=== PATIENT | male | born 1945 | race Caucasian/White ===

== ENCOUNTER 2020-05-31 13:49 | Emergency (ER) | payer OTHER ==
[2020-05-31 15:32] LABS: ALT/SGPT 30 U/L (12-78); AST/SGOT 18 U/L (15-37); Albumin 3.4 g/dL (3.4-5.0); Alkaline Phosphatase 65 U/L (45-117); BUN Blood Urea Nitrogen 22 mg/dL (7-18); Bicarbonate 26 mmol/L (21-32); Bilirubin Direct < 0.1 mg/dL (0-0.2); Bilirubin Total 0.3 mg/dL (0.2-1.0); Glucose Level 99 mg/dL (74-106); Potassium 4.1 mmol/L (3.5-5.1); Protein, Total 7.4 g/dL (6.4-8.2); Sodium Level 143 mmol/L (136-145)
[2020-05-31 15:37] LABS: Absolute Lymphocytes (CBC) 1.8 K/uL (0.7-4.9); Basophils % 1.2 % (0-1.3); Hematocrit 41.3 % (39.6-49.0); Lymphocytes % 37.7 % (15.3-44.8); MPV 8.6 fL (7.6-11.3); RBC Red Blood Cell Count 4.65 M/uL (4.33-5.43)
[2020-05-31 15:38] LABS: Protime INR 1.04
[2020-05-31 16:20] LABS: Urine Appearance CLOUDY; Urine Bilirubin NEGATIVE (NEG); Urine Blood 3+ (NEG); Urine Color RED; Urine Glucose NEGATIVE (NEG); Urine Protein 2+ (NEG); Urine Urobilinogen 0.2 mg/dL (0.2-1.0)
[2020-05-31 16:40] LABS: Urine Bacteria <20 /HPF (NONE SEEN); Urine Culture Reflex Order REFLEXED; Urine Mucus 1+ /HPF (NONE SEEN); Urine RBC >50 /HPF (NONE SEEN)
--- NOTE | 2020-05-31 16:44 | RAD REPORT ---
EXAM DESCRIPTION: CT - Abdomen Pelvis W Contrast - 05/31/2020 4:08 pm CLINICAL HISTORY: Abdominal pain/hematuria COMPARISON: none. TECHNIQUE: Computed axial tomography of the abdomen pelvis was obtained. 100 cc Isovue-300 was admin istered intravenously. Oral contrast was not requested which limits evaluation of bowel. All CT scans are performed using dose optimization technique as appropriate and may include automated exposure control or mA/KV adjustment according to patient size. FINDINGS: The liver, spleen, pancreas, adrenal and right kidney appear unremarkable. 3 millimeter no nobstructing renal calculus There is no evidence of diverticulitis. The prostate gland is markedly enlarged. It contains a 12 millimeter low-density area. Blood is present within bladder. Small to moderate right inguinal hernia contains fat. The appendix is normal caliber containing a tin y calcification 8 millimeter apparent soft tissue structure distal stomach IMPRESSION: 3 millimeter nonobstructing left renal calculus Blood within bladder. Direct visualization recommended Marked prostatic hypertrophy. 12 millimeter low-density area within the prostate may be a small absce ss 8 millimeter apparent soft tissue structure distal stomach may represent a mass or wall thickening
[2020-05-31] MEDS ORDERED: CEFTRIAXONE/SWI 1gm 1 GM/10 ML SYR ONE (17:19)
[2020-05-31] MEDS ORDERED: LIDOCAINE VISCOUS 2% SOLN 15 ML UDC ONE (18:34)
--- NOTE | 2020-05-31 18:37 | ER ---
Nurse's Notes [facility] Name: Ced Lincoln Age: 74 yrs Sex: Male : 1945 Arrival Date: 05/31/2020 Time: 13:51 Bed 13 Private MD: Diagnosis: Hematuria;Acute prostatitis Presentation: 05/31 14:22 Chief complaint: Patient states: blood in urine X 2 days, has appt with urologist on iw , urine frequency, no pain, passed clots today. Coronavirus screen: At this time, the client does not indicate any symptoms associated with coronavirus-19. Ebola Screen: Patient negative for fever greater than or equal to 101.5 degrees Fahrenheit, and additional compatible Ebola Virus Disease symptoms Patient denies exposure to infectious person. Patient denies travel to an Ebola-affected area in the 21 days before illness onset. No symptoms or risks identified at this time. Initial Sepsis Screen: Does the patient meet any 2 criteria? No. Patient's initial sepsis screen is negative. Does the patient have a suspected source of infection? No. Patient's initial sepsis screen is negative. Risk Assessment: Do you want to hurt yourself or someone else? Patient reports no desire to harm self or others. 14:22 Method Of Arrival: Ambulatory iw 14:22 Acuity: RAMIRO 3 iw Historical: - Allergies: 14:25 No Known Allergies; iw - Home Meds: 14:25 tamsulosin 0.4 mg oral cp24 1 cap once daily [Active]; iw - PMHx: 14:25 Hypertension; iw - PSHx: 14:25 Tonsillectomy; Hernia repair; iw - Immunization history:: Adult Immunizations not up to date. - Social history:: Smoking status: Patient denies any tobacco usage or history of. Screenin:55 Abuse screen: Denies threats or abuse. Denies injuries from another. Nutritional jl7 screening: No deficits noted. Tuberculosis screening: No symptoms or risk factors identified. Fall Risk IV access (20 points). Total Saeed Fall Scale indicates No Risk (0-24 pts). Assessment: 14:45 General: Appears in no apparent distress. uncomfortable, Behavior is calm, cooperative, jl7 appropriate for age. Pain: Denies pain. Neuro: Level of Consciousness is awake, alert, obeys commands, Oriented to person, place, time, situation. Cardiovascular: Patient's skin is warm and dry. Respiratory: Airway is patent Respiratory effort is even, unlabored, Respiratory pattern is regular, symmetrical. GI: No signs and/or symptoms were reported involving the gastrointestinal system. : Urine is blood tinged. Derm: Skin is pink, warm \T\ dry. 16:00 Reassessment: Patient appears in no apparent distress at this time. No changes from jl7 previously documented assessment. Patient and/or family updated on plan of care and expected duration. Pain level reassessed. Patient is alert, oriented x 3, equal unlabored respirations, skin warm/dry/pink. 17:00 Reassessment: Patient appears in no apparent distress at this time. No changes from jl7 previously documented assessment. Patient and/or family updated on plan of care and expected duration. Pain level reassessed. Patient is alert, oriented x 3, equal unlabored respirations, skin warm/dry/pink. 18:00 Reassessment: Patient appears in no apparent distress at this time. No changes from jl7 previously documented assessment. Patient and/or family updated on plan of care and expected duration. Pain level reassessed. Patient is alert, oriented x 3, equal unlabored respirations, skin warm/dry/pink. Vital Signs: 14:22 BP 164 / 84; Pulse 61; Resp 16; Temp 98.4; Pulse Ox 97% on R/A; Weight 77.11 kg; Height iw 5 ft. 7 in. (170.18 cm); 15:56 BP 147 / 68; Pulse 50; Resp 17; Pulse Ox 96% ; jl7 18:23 BP 176 / 81; Pulse 52; Resp 17; Pulse Ox 99% ; jl7 14:22 Body Mass Index 26.63 (77.11 kg, 170.18 cm) iw ED Course: 13:51 Patient arrived in ED. ds1 14:24 Triage completed. iw 14:26 Joceline Ocasio RN is Primary Nurse. jl7 14:27 Juan Antonio Lloyd NP is PHCP. pm1 14:27 Orville Rendon MD is Attending Physician. pm1 15:05 Initial lab(s) drawn, by ED staff, sent to lab. Urine collected: clean catch specimen, jl7 blood tinged. Inserted saline lock: 22 gauge in right antecubital area, using aseptic technique. Blood collected. 15:55 Patient has correct armband on for positive identification. Placed in gown. Bed in low jl7 position. Call light in reach. Side rails up X 1. Pulse ox on. NIBP on. Warm blanket given. 16:08 CT Abd/Pelvis - IV Contrast Only In Process Unspecified. EDMS 16:20 Arm band placed on right wrist. jl7 17:55 Bladder scan completed. 318 mL post void. jl7 18:36 Ced Cooper MD is Referral Physician. pm1 18:36 Gordy Kaur MD is Referral Physician. pm1 18:51 No provider procedures requiring assistance completed. IV discontinued, intact, jl7 bleeding controlled, No redness/swelling at site. Pressure dressing applied. Administered Medications: 17:30 Drug: Rocephin 1 grams Route: IV; Rate: calculated rate; Site: right wrist; jl7 17:33 Follow up: Response: No adverse reaction; IV Status: Completed infusion jl7 Outcome: 18:36 Discharge ordered by MD. pm1 18:51 Discharged to home ambulatory. jl7 18:51 Condition: stable 18:51 Discharge instructions given to patient, Instructed on discharge instructions, follow up and referral plans. medication usage, Demonstrated understanding of instructions, follow-up care, medications, Prescriptions given X 1. 18:52 Patient left the ED. jl7 Signatures: Dispatcher [employer] [facility] Araceli Martinez ds1 Maria Alejandra Gutierrez RN RN iw Juan Antonio Lloyd, TRICIA RECEPTION MANAGER pm1 Joceline Ocasio RN RN jl7
--- NOTE | 2020-05-31 18:37 | EDPHYS ---
Physician Documentation [facility] Name: Ced Lincoln Age: 74 yrs Sex: Male : 1945 Arrival Date: 05/31/2020 Time: 13:51 Bed 13 Private MD: ED Physician Orville Rendon HPI: 05/31 14:49 This 74 yrs old Male presents to ER via Ambulatory with complaints of Blood pm1 In Urine. 14:49 The patient presents with urinary symptoms, Hematuria. Onset: The symptoms/episode pm1 began/occurred 2 day(s) ago. Modifying factors: The symptoms are alleviated by nothing, the symptoms are aggravated by nothing. Associated signs and symptoms: Pertinent positives: constipation, left flank pain, Pertinent negatives: abdominal pain, fever, nausea, vomiting, burning with urination, inability to urinate. Severity of symptoms: in the emergency department the symptoms are unchanged. The patient has not experienced similar symptoms in the past. The patient has not recently seen a physician, has an appointment scheduled, with Dr. Cooper in 2 days for the same complaint but felt that he could not wait. Historical: - Allergies: 14:25 No Known Allergies; iw - Home Meds: 14:25 tamsulosin 0.4 mg oral cp24 1 cap once daily [Active]; iw - PMHx: 14:25 Hypertension; iw - PSHx: 14:25 Tonsillectomy; Hernia repair; iw - Immunization history:: Adult Immunizations not up to date. - Social history:: Smoking status: Patient denies any tobacco usage or history of. ROS: 14:49 Constitutional: Negative for fever, chills, and weight loss, Neck: Negative for injury, pm1 pain, and swelling, Cardiovascular: Negative for chest pain, palpitations, and edema, Respiratory: Negative for shortness of breath, cough, wheezing, and pleuritic chest pain, Abdomen/GI: Negative for abdominal pain, nausea, vomiting, diarrhea, and constipation. 14:49 MS/Extremity: Negative for injury and deformity, Skin: Negative for injury, rash, and discoloration, Neuro: Negative for headache, weakness, numbness, tingling, and seizure. 14:49 Back: Positive for mild left flank pain, Negative for injury or acute deformity, decreased range of motion. 14:49 : Positive for hematuria, Negative for urinary frequency, burning with urination, difficulty urinating, penile pain, testicular pain Exam: 14:49 Constitutional: This is a well developed, well nourished patient who is awake, alert, pm1 and in no acute distress. Head/Face: Normocephalic, atraumatic. 14:49 Skin: Warm, dry with normal turgor. Normal color with no rashes, no lesions, and no evidence of cellulitis. MS/ Extremity: Pulses equal, no cyanosis. Neurovascular intact. Full, normal range of motion. 14:49 Cardiovascular: Exam negative for acute changes, Rate: normal, Rhythm: regular, Pulses: no pulse deficits are appreciated. 14:49 Respiratory: Exam negative for acute changes, respiratory distress, shortness of breath. 14:49 Abdomen/GI: Exam negative for acute changes, Inspection: abdomen appears normal, Palpation: abdomen is soft and non-tender, in all quadrants, mass, is not appreciated, rebound tenderness, is not appreciated. 14:49 Back: Exam negative for acute changes, pain, is absent, ROM is normal, CVA tenderness, is absent, vertebral tenderness, is not appreciated. 14:49 Neuro: Exam negative for acute changes, Orientation: is normal, Mentation: is normal, Motor: is normal, moves all fours. Vital Signs: 14:22 BP 164 / 84; Pulse 61; Resp 16; Temp 98.4; Pulse Ox 97% on R/A; Weight 77.11 kg; Height iw 5 ft. 7 in. (170.18 cm); 15:56 BP 147 / 68; Pulse 50; Resp 17; Pulse Ox 96% ; jl7 18:23 BP 176 / 81; Pulse 52; Resp 17; Pulse Ox 99% ; jl7 14:22 Body Mass Index 26.63 (77.11 kg, 170.18 cm) iw MDM: 14:29 Patient medically screened. pm1 17:10 Counseling: I had a detailed discussion with the patient and/or guardian regarding: the pm1 historical points, exam findings, and any diagnostic results supporting the discharge/admit diagnosis, lab results, the need for further work-up and treatment in the hospital. 17:10 Physician consultation: Ced Cooper MD was called at 17:12, message left with his pm1 answering service. He will the ER. 17:19 Data reviewed: vital signs. Data interpreted: Pulse oximetry: on room air is 96 %. pm1 Interpretation: normal. 17:40 Physician consultation: Fern Mcgee NP was contacted at 17:45, regarding consult, pm1 patient's condition, Obtain a post void residual. Patient's vital signs stable, WBC, and BMP within normal limits. If patient is comfortable with going home then he can be discharged home with Levaquin 750 mg PO daily for 14 days. 18:07 ED course: Post void residual 318. pm1 18:11 Physician consultation: Fern Mcgee NP regarding consult, patient's condition, pm1 straight cath the patient to relieve pressure. If able to straight cath without difficulty. If unable to cath the patient then call her back. . 18:34 ED course: 400 urine via straight cath. Patient tolerated well. Patient instructed to pm1 keep appointment with Dr. Cooper on at 1315 and to follow up with Gi on incidental distal stomach finding. 05/31 14:37 Order name: Basic Metabolic Panel; Complete Time: 16:41 pm1 05/31 14:37 Order name: CBC with Diff; Complete Time: 16:41 pm1 05/31 14:37 Order name: Hepatic Function; Complete Time: 16:41 pm1 05/31 14:37 Order name: PT-INR; Complete Time: 16:41 pm1 05/31 14:37 Order name: IV Saline Lock; Complete Time: 15:16 pm1 05/31 14:37 Order name: Labs collected and sent; Complete Time: 15:16 pm05/31 14:37 Order name: CT Abd/Pelvis - IV Contrast Only; Complete Time: 16:47 pm1 05/31 14:37 Order name: Urine Dipstick-Ancillary (obtain specimen); Complete Time: 15:53 pm1 05/31 15:58 Order name: Urinalysis W/Microscopic; Complete Time: 16:41 EDMS 05/31 16:42 Order name: Urine Culture EDCA 05/31 16:54 Order name: Blood Culture Adult (2) pm1 05/31 17:46 Order name: Bladder Scanner: post void residual; Complete Time: 18:21 pm1 05/31 18:11 Order name: Straight Cath - Urine; Complete Time: 18:31 pm1 Administered Medications: 17:30 Drug: Rocephin 1 grams Route: IV; Rate: calculated rate; Site: right wrist; jl7 17:33 Follow up: Response: No adverse reaction; IV Status: Completed infusion jl7 Disposition: 18:54 Co-signature as Attending Physician, Orville Rendon MD. rn Disposition: 05/31/20 18:36 Discharged to Home. Impression: Acute prostatitis, Hematuria. - Condition is Stable. - Discharge Instructions: Hematuria, Adult, Prostatitis. - Prescriptions for Levaquin 750 mg Oral Tablet - take 1 tablet by ORAL route once daily for 14 days; 14 tablet. - Medication Reconciliation Form, Thank You Letter, Antibiotic Education, Prescription Opioid Use form. - Follow up: Emergency Department; When: As needed; Reason: Worsening of condition. Follow up: Ced Cooper MD; When: 2 - 3 days; Reason: Recheck today's complaints, Continuance of care, Re-evaluation by your physician. Follow up: Gordy Kaur MD; When: 2 - 3 days; Reason: Recheck today's complaints, Continuance of care, Re-evaluation by your physician. - Problem is new. - Symptoms have improved. Signatures: Dispatcher [employer] EDMS Maria Alejandra Gutierrez, RN Orville Hdez MD MD rn Marinas, Patrick, [employer] EXPERIMENTAL FLIGHT TEST MECHANIC pm1 Joceline Ocasio RN RN jl7 Corrections: (The following items were deleted from the chart) 15:58 14:38 UA MICROSCOPIC+U.LAB.BRZ ordered. EDCA EDMS 15:58 15:51 URINALYSIS+U.LAB.BRZ ordered. EDCA EDCA 18:36 18:36 05/31/2020 18:36 Discharged to Home. Impression: Hematuria; Acute prostatitis. pm1 Condition is Stable. Forms are Medication Reconciliation Form, Thank You Letter, Antibiotic Education, Prescription Opioid Use. Follow up: Emergency Department; When: As needed; Reason: Worsening of condition. Follow up: Ced Cooper; When: 2 - 3 days; Reason: Recheck today's complaints, Continuance of care, Re-evaluation by your physician. Problem is new. Symptoms have improved. pm1 18:52 18:36 05/31/2020 18:36 Discharged to Home. Impression: Acute prostatitisHematuria. jl7 Condition is Stable. Forms are Medication Reconciliation Form, Thank You Letter, Antibiotic Education, Prescription Opioid Use. Follow up: Emergency Department; When: As needed; Reason: Worsening of condition. Follow up: Ced Cooper; When: 2 - 3 days; Reason: Recheck today's complaints, Continuance of care, Re-evaluation by your physician. Follow up: Gordy Kaur; When: 2 - 3 days; Reason: Recheck today's complaints, Continuance of care, Re-evaluation by your physician. Problem is new. Symptoms have improved. pm1
[2020-05-31 20:40] VITALS: TEMP 98.4
[2020-05-31 20:42] VITALS: BP 176/81; O2SAT 99
== END 2020-05-31 18:52 | disposition home or self-care (01) ==
LOC: ER 13:49
DX: N41.0 Acute prostatitis (principal); I10 Essential (primary) hypertension
CPT/HCPCS: 87040 ×2; 87088; 85025; 81001; 87086; 80048; 36415; 85610; 80076; 74177; 96374; 99284; Q9967; J0696

== ENCOUNTER 2020-11-04 06:35 | Day surgery (SDC) | payer OTHER ==
[2020-11-02 09:59] LABS: Potassium 4.1 mmol/L (3.5-5.1)
[2020-11-02 10:01] LABS: Absolute Lymphocytes (CBC) 1.6 K/uL (0.7-4.9); Basophils % 0.8 % (0-1.3); Hematocrit 42.1 % (39.6-49.0); Lymphocytes % 31.2 % (15.3-44.8); MPV 8.3 fL (7.6-11.3); RBC Red Blood Cell Count 4.69 M/uL (4.33-5.43)
--- NOTE | 2020-11-02 11:56 | RAD REPORT ---
EXAM DESCRIPTION: Amaris Han (2 Views)11/02/2020 10:50 am CLINICAL HISTORY: Preop hernia repair COMPARISON: 2017 FINDINGS: Sclerotic density overlying the right upper lobe unchanged. It may represent a bone island within the first anterior rib. The lungs appear clear of acute infiltrate. The heart is normal size IMPRESSION: No acute abnormalities displayed
--- NOTE | 2020-11-02 12:10 | EKG ---
Test Date: 2020-11-02 Test Time: 11:10:46 [facility] Network Manager: NOEMY MEASUREMENT RESULTS: Intervals: Rate: 54 [place]: 128 QRSD: 106 QT: 436 QTc: 413 [place]: P: 27 [place]: 128 QRS: 42 T: 47 INTERPRETIVE STATEMENTS: Sinus bradycardia Otherwise normal ECG Compared to ECG 07/08/2017 08:37:15 No significant changes Electronically Signed On 11-02-20 12:10:17 FIELD IDENTIFICATION SPECIALIST by Boaz Bennett
--- OUTSIDE RECORDS SUMMARY | 2020-11-04 06:44 | XMS REPORT | Continuity of Care Document ---
:1945 Author Organization [facility] t Address [address] [place] [address] [address] [place] [address] Care Team Providers Name Role Phone Unavailable Unavailable Unavailable Problems This patient has no known problems. Allergies, Adverse Reactions, Alerts This patient has no known allergies or adverse reactions. Medications Ordered Filled Start Stop Current Ordering Indication Dosage Frequency Signature Comments Components Source Medication Medication Date Date Medication? Clinician (SIG) Name Name Finasteride Finasteride 2020- No Ced [address] [facility] 9-15 -13 [facility]00 [facility] Tamsulosin Tamsulosin 2020- No Ced [address] [facility] HCl HCl 8-20 -15 [facility] - [facility]: 00:00 [facility] 00 :00 [facility] Metoprolol Metoprolol Yes Ced [address] [facility] Tartrate Tartrate [place] [facility] Lisinopril Lisinopril Yes Ced [address] [facility] [place] [facility] Procedures This patient has no known procedures. Encounters Start End Encounter Admission Attending Care Care Encounter Source Date/Time Date/Time Type Type Clinicians Facility Department ID 2020-09-28 2020-09-28 Outpatient [facility] [id number] [facility] 2020-08-23 2020-08-23 Outpatient [facility] [id number] [facility] 2020-08-22 2020-08-22 Outpatient [facility] [id number] [facility] 2020-08-11 2020-08-11 Outpatient [facility] [id number] [facility] 2020-06-28 2020-06-28 Outpatient Rhonda [facility] [id number] [facility] 10:30:00 10:30:00 t Specialty/U [facility] - [facility] Outpat[facility] ent Clinics 2020-06-24 2020-06-24 [facility] [place] [id number] [facility] 14:26:00 14:26:00 t Specialty/U [facility] - [facility] ro[facility]y [facility] Clinic Outpati ent Clinics 2020-06-23 2020-06-23 [facility] [place] [id number] [facility] 15:16:00 15:16:00 t Specialty/U [facility] - [facility]y [facility] Clinic Outpati ent Clinics 2020-06-03 2020-06-03 Outpatient [facility] [place] [id number] [facility] 11:00:00 11:00:00 t Specialty/U [facility] - Specialty rology [facility] Outpati ent Clinics 2020-06-02 2020-06-02 Outpatient Rhonda Ellist [id number] [facility] 13:15:00 13:15:00 t Specialty/U [facility] - Specialty rology [facility] l Clinic Outpati ent Clinics Results This patient has no known results.
[2020-11-04] MEDS ORDERED: Ringers Lactate 1,000 ML IV ONE ×2 (07:10→08:27)
[2020-11-04] MEDS ORDERED: propofoL 200 MG/20 ML VIAL IV ONE (07:11)
[2020-11-04] MEDS ORDERED: LIDOCAINE 1% MPF 5 ML VIAL ONE (07:11)
[2020-11-04] MEDS ORDERED: MIDAZOLAM HCL 2 MG/2 ML INJ ONE (07:11)
[2020-11-04] MEDS ORDERED: FENTANYL CITR 100 MCG/2 ML ONE (07:11)
[2020-11-04] MEDS ORDERED: dexAMETHasone 10 MG/ML VIAL ONE (07:11)
[2020-11-04] MEDS: CEFAZOLIN/SWI 1gm 1 GM/10 ML SYR ONE ×2 (07:37→07:45)
[2020-11-04] MEDS ORDERED: EPHEDRINE SULF 50 MG/ML VIAL ONE (08:00)
[2020-11-04] MEDS ORDERED: ROCURONIUM 50 MG/5 ML VIAL IV ONE (08:25)
[2020-11-04] MEDS ORDERED: KETOROLAC 30 MG/ML INJ ONE (08:35)
[2020-11-04] MEDS: MORPHINE 4 MG/ML SYR ONE ×2 (08:48→08:53)
--- NOTE | 2020-11-04 08:58 | OP ---
Date of Procedure: 11/04/2020 Surgeon: Fitz Christie MD [employer] Claims Adjuster: SURINDER [place]. Preoperative Diagnosis: Right inguinal hernia, symptomatic. Postoperative Diagnosis: Right inguinal hernia, symptomatic. Procedure: Repair of right inguinal hernia. Estimated Blood Loss: Minimal. Specimen: Hernia sac and cord lipoma. Findings: As above. Anesthesia: General. Complications: None. Disposition: The patient tolerated the procedure in stable condition, taken to Recovery in good gene ral condition. Description Of Procedure: The patient was brought to the OR and placed in supine position. General anesthesia begun. The patient was prepped and draped in the usual sterile fashion. Marcaine 0.5% wa s infiltrated locally. A 15-blade was used to make a 4 cm oblique incision between the pubic tubercl e and the anterior iliac superior spine. Subcutaneous tissue was divided. Judd fascia was identif ied and divided. Aponeurosis was identified and mobilized inferiorly to expose shelving edge, and th en the aponeurosis was opened through the external ring. The ilioinguinal nerve was identified and r etracted out of the field of dissection. Cord was mobilized at the pubic tubercle and skeletonized. The large cord lipoma and hernia sac were identified with omentum inside of it. The omentum was red uced back into the peritoneal cavity. Cord lipoma and hernia sac were from the cord struct ures and individually ligated and tied off with suture ligature of 2-0 Prolene and free hand tie and then both structures were sent to Pathology as specimen. Marlex mesh plug was placed in the internal ring, secured with VersaTack stapler. Onlay mesh was placed on the inguinal floor, secured medially to the pubic tubercle, superiorly to the conjoined tendon, laterally to each other. Then, cord stru ctures and ilioinguinal nerve were placed back in anatomic location and then 2-0 Prolene used to clos e the aponeurosis, 3-0 chromic used to reapproximate Judd's fascia and closed the skin. Sterile dr essing was applied. The patient was awakened and taken to Recovery in good general condition. Discharge Note: The patient will go to Day Surgery and home when stable. Disposition: Home. Condition: Stable. Discharge Instructions: Resume home medications and diet. Activity as tolerated. No heavy lifting. Remove outer dressing in 2 days. Shower. Keep wound clean and dry. Followup in my office in 1 we ek. Call for appointment. Tylenol No. 3, 1 tablet p.o. q.4 p.r.n. pain. Ice pack, scrotal support. DWAYNE/CARMELLA Voice ID: [id number] Report ID: [id number]
[2020-11-04 09:48] VITALS: TEMP 97
[2020-11-04] MEDS ORDERED: HYDROCODONE/APAP 7.5/325 MG TAB ONE (09:50)
[2020-11-04 11:44] VITALS: BP 140/70; O2SAT 99
== END 2020-11-04 11:30 | disposition home or self-care (01) ==
LOC: OR 06:35
PROVIDERS: ATTEND Surgery
PROC: 0YU50JZ Supplement Right Inguinal Region with Synthetic Substitute, Open Approach (ICD-10-PCS; principal; 2020-11-04 07:30)
DX: K40.90 Unilateral inguinal hernia, without obstruction or gangrene, not specified as recurrent (principal); Z20.822 Contact with and (suspected) exposure to COVID-19
CPT/HCPCS: 93005; 85025; 80048; 36415; 88302; 71046; 49505; U0002; J2704; J2250; J3010; J1100; J0690; J7120 ×2

== ENCOUNTER 2021-03-31 13:12 | Emergency (ER) | payer OTHER ==
--- OUTSIDE RECORDS SUMMARY | 2021-03-31 13:14 | XMS REPORT | Continuity of Care Document ---
:1945 Author Organization [facility] t Address [address] [place] [address] [address]. Arredondo [address] [place] [address] Care Team Providers Name Role Phone Unavailable Unavailable Unavailable Problems This patient has no known problems. Allergies, Adverse Reactions, Alerts This patient has no known allergies or adverse reactions. Medications Ordered Filled Start Stop Current Ordering Indication Dosage Frequency Signature Comments Components Source Medication Medication Date Date Medication? Clinician (SIG) Name Name Finasteride Finasteride 2020- No Ced [address] [facility] 9-15 -13 [facility]00 [facility] Tamsulosin Tamsulosin 2020- No Ced [address] [facility] HCl HCl 8-20 -15 [facility] - [facility]: 00:00 [facility] 00 :00 [facility]ics Metoprolol Metoprolol Yes Ced [address] [facility] Tartrate Tartrate [facility] Lisinopril Lisinopril Yes Ced [address] [facility] Procedures This patient has no known procedures. Encounters Start End Encounter Admission Attending Care Care Encounter Source Date/Time Date/Time Type Type Clinicians Facility Department ID 2020-09-28 2020-09-28 Outpatient [facility] [id number] [facility] 2020-08-23 2020-08-23 Outpatient [facility] [id number] [facility] 2020-08-22 2020-08-22 Outpatient [facility] [id number] [facility] 2020-08-11 2020-08-11 Outpatient [facility] [id number] [facility] 2020-06-28 2020-06-28 Outpatient Rhonda Ellist [id number] [facility] 10:30:00 10:30:00 t Specialty/U Shila kes - Specialty rology [facility] l Clinic Outpati ent Clinics 2020-06-24 2020-06-24 [place] [place] [id number] [facility] 14:26:00 14:26:00 t Specialty/U Shila kes - Specialty ro[facility]y [facility] l Clinic Outpati ent Clinics 2020-06-23 2020-06-23 [place] [id number] [facility] 15:16:00 15:16:00 t Specialty/U Shila kes - Specialty ro[facility]y [facility]rology [facility] l Clinic Outpati ent Clinics 2020-06-03 2020-06-03 [facility] [id number] [facility] 11:00:00 11:00:00 t Specialty/U Shila kes - Specialty rology [facility]rology Clinic l Clinic Outpati ent Clinics 2020-06-02 2020-06-02 Outpatient Rhonda Ellist [id number] [facility] 13:15:00 13:15:00 t Specialty/U Shila kes - Specialty rology [facility] l Clinic Outpati ent Clinics Results This patient has no known results.
[2021-03-31 14:50] LABS: Absolute Lymphocytes (CBC) 0.9 K/uL (0.7-4.9); Basophils % 0.4 % (0-1.3); Hematocrit 40.6 % (39.6-49.0); Lymphocytes % 9.2 % (15.3-44.8); MPV 8.5 fL (7.6-11.3); RBC Red Blood Cell Count 4.56 M/uL (4.33-5.43)
[2021-03-31] MEDS ORDERED: PIPER/TAZO/NS 3.375gm 3.375 GM/100 ML BAG ONE (15:06)
[2021-03-31] MEDS ORDERED: ONDANSETRON 4 MG/2 ML VIAL ONE (15:06)
[2021-03-31] MEDS ORDERED: MORPHINE 4 MG/ML SYR ONE (15:06)
[2021-03-31] MEDS ORDERED: NA CHLORIDE 0.9% 1,000 ML ONE (15:06)
[2021-03-31 15:09] LABS: Albumin 3.8 g/dL (3.4-5.0); Bilirubin Direct 0.1 mg/dL (0-0.2); Bilirubin Total 0.5 mg/dL (0.2-1.0); Potassium 4.3 mmol/L (3.5-5.1); Protein, Total 7.8 g/dL (6.4-8.2)
--- NOTE | 2021-03-31 15:22 | RAD REPORT ---
EXAM DESCRIPTION: CT - Abdomen Pelvis W Contrast - 03/31/2021 2:50 pm CLINICAL HISTORY: LLQ abd pain;Abd pain COMPARISON: Abdomen Pelvis W Contrast dated 05/31/2020 TECHNIQUE: Biphasic, helical CT imaging of the abdomen and pelvis was performed following 100 ml non -ionic IV contrast. No oral contrast administered. All CT scans are performed using dose optimization technique as appropriate and may include automated exposure control or mA/KV adjustment according to patient size. FINDINGS: No suspicious findings in the lung bases. Patient has elevated right hemidiaphragm with co lonic interposition between the diaphragm and anterior liver. This is a normal variant similar to com parison. The liver, spleen, and pancreas show no suspicious findings. Gallbladder and biliary tree are also wi thout suspicious finding. Patient has mild hydronephrosis of the pelvis and calices of the left kidney secondary to a 5 mm UPJ calculus. There is delayed function of the left kidney relative to the right. Left kidney is edematou s with mild perinephric stranding. No additional renal or ureteral calculi seen. No pyelonephritis or acute parenchymal process. No bladder abnormalities. No adrenal abnormalities. Patient has a very en larged lobulated and heterogeneously enhancing prostate gland. This is not substantially different fr om May 2020 but can be correlated with PSA values. No dilated bowel loops or bowel wall thickening. Moderate severity sigmoid diverticulosis present wit hout diverticulitis. The appendix is normal. No free air, free fluid or pneumatosis. Right inguinal hernia repair has occurred since the prior study. No suspicious or unexpected finding. No bulky lymph adenopathy or mass. Disc and bony degenerative changes are present. No acute or pathologic bone process identifiable. Pat ient has prominent arterial tree calcifications. There is questionable stenosis at the left common il iac -external iliac junction. IMPRESSION: Mild hydronephrosis of the left renal pelvis and calices secondary to a 5 mm obstructing UPJ calculus. Additional nonacute findings detailed in body of the report.
[2021-03-31] MEDS ORDERED: HYDROMORPHONE HCL 1 MG/ML INJ ONE (16:30)
[2021-03-31] MEDS ORDERED: PROMETHAZINE INJ 25 MG/ML AMP ONE (16:30)
[2021-03-31] MEDS ORDERED: NA CHLORIDE 0.9% 50 ML ONE (16:30)
--- NOTE | 2021-03-31 18:47 | EDPHYS ---
Physician Documentation [facility] Name: Ced Lincoln Age: 75 yrs Sex: Male : 1945 Arrival Date: 03/31/2021 Time: 13:16 Bed 5 Private MD: ED Physician Albert Antony HPI: 03/31 14:28 This 75 yrs old Male presents to ER via Ambulatory with complaints of ma2 Abdominal Pain. 14:28 The patient presents with abdominal pain. Onset: The symptoms/episode began/occurred ma2 gradually, 1 day(s) ago. Associated signs and symptoms: Pertinent negatives: blood in stools, chest pain, diarrhea, dysuria. Severity of pain: At its worst the pain was mild in the emergency department the pain is unchanged. The patient has not experienced similar symptoms in the past. LLQ abd pain. Historical: - Allergies: 13:27 No Known Allergies; ss - PMHx: 13:27 Hypertension; ss - PSHx: 13:27 Tonsillectomy; Hernia repair; ss - Immunization history:: Flu vaccine is up to date. Client reports receiving the 2nd dose of the Covid vaccine. - Social history:: Smoking status: Patient denies any tobacco usage or history of. Patient/guardian denies using alcohol, street drugs, The patient lives with family. - Family history:: not pertinent. ROS: 14:28 Constitutional: Negative for fever, chills, and weight loss. ma2 14:28 All other systems are negative. Exam: 14:28 Constitutional: This is a well developed, well nourished patient who is awake, alert, ma2 and in no acute distress. Neck: Trachea midline, no thyromegaly or masses palpated, and no cervical lymphadenopathy. Supple, full range of motion without nuchal rigidity, or vertebral point tenderness. No Meningismus. Chest/axilla: Normal chest wall appearance and motion. Nontender with no deformity. No lesions are appreciated. Cardiovascular: Regular rate and rhythm with a normal S1 and S2. No gallops, murmurs, or rubs. Normal PMI, no JVD. No pulse deficits. Respiratory: Lungs have equal breath sounds bilaterally, clear to auscultation and percussion. No rales, rhonchi or wheezes noted. No increased work of breathing, no retractions or nasal flaring. Abdomen/GI: left lower Q-tenderness, with normal bowel sounds. No distension or tympany. No guarding or rebound Back: No spinal tenderness. No costovertebral tenderness. Full range of motion. Skin: Warm, dry with normal turgor. Normal color with no rashes, no lesions, and no evidence of cellulitis. MS/ Extremity: Pulses equal, no cyanosis. Neurovascular intact. Full, normal range of motion. Neuro: Awake and alert, GCS 15, oriented to person, place, time, and situation. Cranial nerves II-XII grossly intact. Motor strength 5/5 in all extremities. Sensory grossly intact. Cerebellar exam normal. Normal gait. Vital Signs: 13:25 BP 169 / 77; Pulse 58; Resp 17; Temp 97.6; Pulse Ox 97% ; Weight 77.11 kg; Height 5 ft. ss 7 in. (170.18 cm); Pain 10/10; 16:24 BP 128 / 71; Pulse 72; Resp 18; Pulse Ox 95% on R/A; ph 17:41 BP 146 / 67; Pulse 68; Resp 18; Pulse Ox 95% on R/A; ph 19:15 BP 137 / 84; Pulse 78; Resp 16; Pulse Ox 95% on R/A; jb4 13:25 Body Mass Index 26.63 (77.11 kg, 170.18 cm) ss MDM: 14:23 Patient medically screened. [facility] 14:28 Differential diagnosis: diverticulitis, gastritis, gastroesophageal reflux disease, ma2 Irritable bowel syndrome. 18:46 Data reviewed: vital signs, nurses notes. Counseling: I had a detailed discussion with ma2 the patient and/or guardian regarding: the historical points, exam findings, and any diagnostic results supporting the discharge/admit diagnosis, the presence of at least one elevated blood pressure reading (>120/80) during this emergency department visit. Response to treatment: the patient's symptoms have markedly improved after treatment. 03/31 14:23 Order name: Basic Metabolic Panel; Complete Time: 15:49 [facility] 03/31 14:23 Order name: CBC with Diff; Complete Time: 15:49 [facility] 03/31 14:23 Order name: Hepatic Function; Complete Time: 15:49 [facility] 03/31 14:23 Order name: Lipase; Complete Time: 15:49 [facility] 03/31 14:23 Order name: Blood Culture Adult (2) sc2 03/31 14:23 Order name: CT Abd/Pelvis - IV Contrast Only; Complete Time: 15:49 [facility] 03/31 14:23 Order name: IV Saline Lock; Complete Time: 15:06 sc2 03/31 14:23 Order name: Labs collected and sent; Complete Time: 15:06 ma2 Administered Medications: 15:05 Drug: NS 0.9% 1000 ml Route: IV; Rate: 1 bolus; Site: right antecubital; ph 17:40 Follow up: Response: No adverse reaction; IV Status: Completed infusion ph 15:06 Drug: morphine 4 mg Route: IVP; Site: right antecubital; ph 16:05 Follow up: Response: No adverse reaction; Pain is unchanged, physician notified ph 15:06 Drug: Zofran (Ondansetron) 4 mg Route: IVP; Site: right antecubital; ph 17:33 Follow up: Response: No adverse reaction ph 15:56 Drug: Zosyn (piperacillin-tazobactam) 3.375 grams Route: IVPB; Infused Over: 60 mins; tr6 Site: right antecubital; 17:00 Follow up: Response: No adverse reaction; IV Status: Completed infusion ph 16:14 Drug: Dilaudid (HYDROmorphone) 1 mg Route: IVP; Site: right antecubital; tr6 17:39 Follow up: Response: No adverse reaction; Pain is decreased ph 16:14 Drug: Phenergan (promethazine) 25 mg Route: IVP; Site: right antecubital; tr6 17:39 Follow up: Response: No adverse reaction; Nausea is decreased ph 16:33 Drug: NS 0.9% 1000 ml Route: IV; Rate: 1 bolus; Site: right antecubital; tr6 Disposition: 03/31/21 18:46 Discharged to Home. Impression: Calculus of kidney and ureter - left ureter . - Condition is Stable. - Discharge Instructions: Kidney Stones, [id number], Dietary Guidelines to Help Prevent Kidney Stones. - Prescriptions for Zofran 4 mg Oral Tablet - take 1 tablet by ORAL route every 12 hours As needed; 20 tablet. Diclofenac Sodium 75 mg Oral Tablet Sustained Release - take 1 tablet by ORAL route 2 times per day; 30 tablet. Tramadol 50 mg Oral Tablet - take 1 tablet by ORAL route every 8 hours as needed; 12 tablet. - Medication Reconciliation Form, Thank You Letter, Antibiotic Education, Prescription Opioid Use form. - Follow up: Mark Campa; When: Tomorrow; Reason: If symptoms return, Continuance of care. - Notes: follow up with urologist for both kidney stone and enlarged bladder. Signatures: Dispatcher [employer] EDIA Stephanie Dior RN RN Rosaline Sands RN RN Adria Raza RN RN jb4 Albert Antony MD MD ma2 Adriana Leung RN RN tr6 Corrections: (The following items were deleted from the chart) 19:33 18:46 03/31/2021 18:46 Discharged to Home. Impression: Calculus of kidney and ureter - jb4 left ureter . Condition is Stable. Discharge Instructions: Dietary Guidelines to Help Prevent Kidney Stones. Prescriptions for Zofran 4 mg Oral Tablet - take 1 tablet by ORAL route every 12 hours As needed; 20 tablet, Diclofenac Sodium 75 mg Oral Tablet Sustained Release - take 1 tablet by ORAL route 2 times per day; 30 tablet. and Forms are Medication Reconciliation Form, Thank You Letter, Antibiotic Education, Prescription Opioid Use. Follow up: Mark Campa; When: Tomorrow; Reason: If symptoms return, Continuance of care. ma2
--- NOTE | 2021-03-31 18:47 | ER ---
Nurse's Notes [facility] Name: Ced Lincoln Age: 75 yrs Sex: Male : 1945 Arrival Date: 03/31/2021 Time: 13:16 Bed 5 Private MD: Diagnosis: Calculus of kidney and ureter-left ureter Presentation: 03/31 13:25 Coronavirus screen: Client denies travel out of the [place] in the last 14 days. At this ss time, the client does not indicate any symptoms associated with coronavirus-19. Ebola Screen: Patient denies travel to an Ebola-affected area in the 21 days before illness onset. Initial Sepsis Screen: Does the patient meet any 2 criteria? No. Patient's initial sepsis screen is negative. Does the patient have a suspected source of infection? Yes: Acute abdominal pain. Risk Assessment: Do you want to hurt yourself or someone else? Patient reports no desire to harm self or others. Onset of symptoms was March 31, 2021. 13:25 Method Of Arrival: Ambulatory ss 13:25 Acuity: RAMIRO 3 ss Historical: - Allergies: 13:27 No Known Allergies; ss - PMHx: 13:27 Hypertension; ss - PSHx: 13:27 Tonsillectomy; Hernia repair; ss - Immunization history:: Flu vaccine is up to date. Client reports receiving the 2nd dose of the Covid vaccine. - Social history:: Smoking status: Patient denies any tobacco usage or history of. Patient/guardian denies using alcohol, street drugs, The patient lives with family. - Family history:: not pertinent. Screenin:55 Abuse screen: Denies threats or abuse. Denies injuries from another. Nutritional ph screening: No deficits noted. Tuberculosis screening: No symptoms or risk factors identified. Fall Risk None identified. Assessment: 14:52 General: Appears in no apparent distress. uncomfortable, Behavior is calm, cooperative, ph appropriate for age. Pain: Complains of pain in left lower quadrant. Neuro: Level of Consciousness is awake, alert, obeys commands, Oriented to person, place, time, situation. Cardiovascular: Capillary refill < 3 seconds in bilateral fingers Patient's skin is warm and dry. Respiratory: Airway is patent Respiratory effort is even, unlabored, Respiratory pattern is regular, symmetrical. GI: Abdomen is non-distended, Reports lower abdominal pain, nausea, vomiting, Patient currently denies diarrhea. Derm: Skin is intact, is healthy with good turgor, Skin is pink, warm \T\ dry. Musculoskeletal: Circulation, motion, and sensation intact. Range of motion: intact in all extremities. 15:57 Reassessment: MD Morel at bedside to update pt on POC. tr6 16:24 Reassessment: Patient appears in no apparent distress at this time. Patient and/or ph family updated on plan of care and expected duration. Pain level reassessed. Patient is alert, oriented x 3, equal unlabored respirations, skin warm/dry/pink. 19:15 Reassessment: Pt is alert and oriented x4, respirations are even and unlabored with no jb4 s/s of pain or distress noted. Verbalized understanding of d/c and follow up instructions. Denies questions or concerns. Assisted to vehicle via wheelchair with family. Vital Signs: 13:25 BP 169 / 77; Pulse 58; Resp 17; Temp 97.6; Pulse Ox 97% ; Weight 77.11 kg; Height 5 ft. ss 7 in. (170.18 cm); Pain 10/10; 16:24 BP 128 / 71; Pulse 72; Resp 18; Pulse Ox 95% on R/A; ph 17:41 BP 146 / 67; Pulse 68; Resp 18; Pulse Ox 95% on R/A; ph 19:15 BP 137 / 84; Pulse 78; Resp 16; Pulse Ox 95% on R/A; jb4 13:25 Body Mass Index 26.63 (77.11 kg, 170.18 cm) ED Course: 13:16 Patient arrived in ED. bp1 13:27 Triage completed. ss 13:28 Arm band placed on. ss 13:42 Billy Cedeño PA is PHCP. jmm 13:42 Albert Morel MD is Attending Physician. jmm 14:14 Rosaline Sands, RADHA is Primary Nurse. ph 14:50 CT Abd/Pelvis - IV Contrast Only In Process Unspecified. EDMS 14:55 Patient has correct armband on for positive identification. Placed in gown. Bed in low ph position. Call light in reach. Pulse ox on. NIBP on. Door closed. Noise minimized. Warm blanket given. 18:46 Mark Campa MD is Referral Physician. ma2 19:20 No provider procedures requiring assistance completed. IV discontinued, intact, jb4 bleeding controlled, No redness/swelling at site. Pressure dressing applied. Administered Medications: 15:05 Drug: NS 0.9% 1000 ml Route: IV; Rate: 1 bolus; Site: right antecubital; ph 17:40 Follow up: Response: No adverse reaction; IV Status: Completed infusion ph 15:06 Drug: morphine 4 mg Route: IVP; Site: right antecubital; ph 16:05 Follow up: Response: No adverse reaction; Pain is unchanged, physician notified ph 15:06 Drug: Zofran (Ondansetron) 4 mg Route: IVP; Site: right antecubital; ph 17:33 Follow up: Response: No adverse reaction ph 15:56 Drug: Zosyn (piperacillin-tazobactam) 3.375 grams Route: IVPB; Infused Over: 60 mins; tr6 Site: right antecubital; 17:00 Follow up: Response: No adverse reaction; IV Status: Completed infusion ph 16:14 Drug: Dilaudid (HYDROmorphone) 1 mg Route: IVP; Site: right antecubital; tr6 17:39 Follow up: Response: No adverse reaction; Pain is decreased ph 16:14 Drug: Phenergan (promethazine) 25 mg Route: IVP; Site: right antecubital; tr6 17:39 Follow up: Response: No adverse reaction; Nausea is decreased ph 16:33 Drug: NS 0.9% 1000 ml Route: IV; Rate: 1 bolus; Site: right antecubital; tr6 Outcome: 18:46 Discharge ordered by . ma2 19:30 Discharged to home via wheelchair, with family. jb4 19:30 Condition: stable 19:30 Discharge instructions given to patient, Instructed on discharge instructions, follow up and referral plans. medication usage, Demonstrated understanding of instructions, follow-up care, medications, Prescriptions given X 3. 19:33 Patient left the ED. jb4 Signatures: Dispatcher [employer] EDMS Billy Cedeño PA PA jmm Smirch, Shelby, RN RN Rosaline Sands RN RN Adria Raza RN RN jb4 Alzahri, Mohammad, MD MD ma2 Maritza Chavira Tiffany, RN RN tr6
[2021-03-31 19:38] VITALS: TEMP 97.6
[2021-03-31 19:40] VITALS: O2SAT 95
[2021-03-31 19:43] VITALS: BP 137/84
== END 2021-03-31 19:33 | disposition home or self-care (01) ==
LOC: ER 13:12
DX: N13.2 Hydronephrosis with renal and ureteral calculous obstruction (principal); I10 Essential (primary) hypertension
CPT/HCPCS: 87040 ×2; 85025; 80048; 36415; 82565; 80076; 83690; 74177; Q9967; J2550; J2543; J1170; J7030; J2405

== ENCOUNTER 2021-10-12 06:51 | Emergency (ER) | payer OTHER ==
--- OUTSIDE RECORDS SUMMARY | 2021-10-12 06:55 | XMS REPORT | Continuity of Care Document ---
:1945 Author Organization [facility] t Address [address] [place] [address] Dr. Arredondo [address] [place] [address] Care Team Providers Name Role Phone Unavailable Unavailable Unavailable Payers Payer Name Policy Type Policy Number Effective Date Expiration Date S [facility] [id number] 2021 (MEDICARE 00:00:00 REPLACEMENT HMO) Problems This patient has no known problems. Allergies, Adverse Reactions, Alerts This patient has no known allergies or adverse reactions. Medications Ordered Filled Start Stop Current Ordering Indication Dosage Frequency Signature Comments Components Source Medication Medication Date Date Medication? Clinician (SIG) Name Name Finasteride Finasteride 2020- No Ced [address] [facility] 9-15 03-13 [facility] Tamsulosin Tamsulosin 2020- No Ced [address] [facility] HCl HCl 8-20 02-15 [facility] Metoprolol Metoprolol Yes Ced [address] [facility] Tartrate Tartrate Allison with [facility] Lisinopril Lisinopril Yes Ced [address] [facility] Procedures This patient has no known procedures. Encounters Start End Encounter Admission Attending Care Care Encounter Source Date/Time Date/Time Type Type Clinicians Facility Department ID 2021-09-05 2021-09-05 Outpatient [facility] [id number] [facility] 12:01:00 12:01:00 [facility] 2021-04-18 2021-04-18 Outpatient [facility] [id number] [facility] 2021-04-04 2021-04-04 Outpatient [facility] [id number] [facility] 2021-04-04 2021-04-04 Out[facility] [id number] [facility] 2020-09-28 2020-09-28 Outpatient [facility] [id number] [facility] 2020-08-23 2020-08-23 [facility] [id number] 2020-08-22 2020-08-22 [facility] [id number] [facility] 2020-08-11 2020-08-11 [facility] [id number] [facility] 2020-06-28 2020-06-28 [facility] [id number] [facility] 10:30:00 10:30:00 t Specialty/U Shila kes - Specialty rology [facility]Urology Clinic l Clinic Outpati ent Clinics 2020-06-24 2020-06-24 [facility] [id number] 14:26:00 14:26:00 t Specialty/U Shila kes - Specialty rology [facility] l Clinic Outpati ent Clinics 2020-06-23 2020-06-23 [facility] [id number] 15:16:00 15:16:00 t Specialty/U Shila kes - Specialty rology [facility] Clinic Outpati ent Clinics 2020-06-03 2020-06-03 [facility] [id number] 11:00:00 11:00:00 t Specialty/U Shila kes - Specialty rology [facility] 2020-06-02 2020-06-02 Outpatient Rhonda Cha [id number] [facility] 13:15:00 13:15:00 t Specialty/U Shila brambila - Specialty rology [facility] Results This patient has no known results.
[2021-10-12] MEDS ORDERED: FENTANYL CITR 100 MCG/2 ML ONE (07:51)
[2021-10-12] MEDS ORDERED: NA CHLORIDE 0.9% 500 ML ONE (07:51)
[2021-10-12 08:18] LABS: Absolute Lymphocytes (CBC) 1.6 K/uL (0.7-4.9); Hematocrit 39.2 % (39.6-49.0); Lymphocytes % 17.3 % (15.3-44.8); RBC Red Blood Cell Count 4.39 M/uL (4.33-5.43)
[2021-10-12 08:36] LABS: ALT/SGPT 28 U/L (12-78); Albumin 3.3 g/dL (3.4-5.0); Alkaline Phosphatase 55 U/L (45-117); BUN Blood Urea Nitrogen 24 mg/dL (7-18); Bicarbonate 28 mmol/L (21-32); Bilirubin Direct < 0.1 mg/dL (0-0.2); Bilirubin Total 0.4 mg/dL (0.2-1.0); Glucose Level 99 mg/dL (74-106); Lipase 89 U/L (73-393); Protein, Total 7.8 g/dL (6.4-8.2); Sodium Level 139 mmol/L (136-145)
[2021-10-12 08:37] LABS: AST/SGOT 23 U/L (15-37); Potassium 4.1 mmol/L (3.5-5.1)
--- NOTE | 2021-10-12 08:40 | RAD REPORT ---
EXAM DESCRIPTION: CT - Stone Protocol - 10/12/2021 7:56 am CLINICAL HISTORY: Flank pain. FLANK PAIN COMPARISON: Abdomen Pelvis W Contrast dated 10/08/2021 TECHNIQUE: Axial images were obtained without oral or IV contrast. Lack of contrast limits solid org an and vascular assessment. The [id number] spans the entirety of the system partially obscuring uppermost abdomen and lung bases. Coronal reformatted images were obtained and reviewed. All CT scans are performed using dose optimization technique as appropriate and may include automated exposure control or mA/KV adjustment according to patient size. FINDINGS: Mild linear atelectasis is present in both bases. Imaged portions of the liver and spleen show no suspicious findings on non-contrast imaging. The panc reas and adrenal glands are normal. No pathologic lymphadenopathy in the abdomen or pelvis. 5 mm stone is present in the distal left ureter resulting mild to moderate left-sided hydronephrosis and hydroureter No bowel obstruction, free air, free fluid or abscess. Normal appendix noted.Small fat containing umb ilical hernia. Sigmoid diverticulosis. No significant bony abnormality. Prostate enlargement is present. Right inguinal surgical clips. IMPRESSION: 5 mm stone distal left ureter resulting mild to moderate left-sided hydronephrosis and h ydroureter.
[2021-10-12] MEDS ORDERED: HYDROMORPHONE HCL 0.5 MG/0.5 ML INJ ONE (09:43)
[2021-10-12] MEDS ORDERED: TAMSULOSIN 0.4 MG SR CAP ONE (09:43)
[2021-10-12] MEDS ORDERED: CEFTRIAXONE 1000 MG/VIAL ONE (09:43)
[2021-10-12] MEDS ORDERED: MAGNESIUM SULFATE 1 gm IVPB 1 GM/100 ML BAG IV ONE (09:44)
[2021-10-12] MEDS ORDERED: NA CHLORIDE 0.9% 50 ML ONE (09:44)
[2021-10-12 09:54] LABS: Urine Blood Trace-intact (Negative); Urine Glucose Negative (Negative); Urine Protein Negative (Negative)
[2021-10-12 10:19] LABS: Urine Bacteria NONE SEEN /HPF (NONE SEEN); Urine Mucus LIGHT /HPF (NONE SEEN); Urine RBC <5 /HPF (NONE SEEN)
--- NOTE | 2021-10-12 10:57 | EDPHYS ---
Physician Documentation [facility] Name: Ced Lincoln Age: 76 yrs Sex: Male : 1945 Arrival Date: 10/12/2021 Time: 06:57 Bed 15 Private MD: ED Physician Milton Stern HPI: 10/12 07:21 This 76 yrs old Male presents to ER via Ambulatory with complaints of Low Back Pain, cp Pain With Urination. 07:21 The patient presents with pain that is acute, with no known mechanism of injury. The cp symptoms are located in the left low back. The pain does not radiate. Onset: The symptoms/episode began/occurred last night. Historical: - Allergies: 10:00 No Known Allergies; jg9 - Home Meds: 07:11 lisinopril Oral [Active]; Metoprolol Tartrate Oral [Active]; tamsulosin 0.4 mg Oral corrales cp24 1 cap once daily [Active]; - PMHx: 07:11 enlarged prostate; Hypertension; corrales - PSHx: 07:11 PHILIPP Injuinal Repair; corrales - Immunization history:: Adult Immunizations up to date. - Social history:: Smoking status: Patient denies any tobacco usage or history of. ROS: 07:25 Back: Positive for pain at rest, pain with movement, of the left low back, Negative for cp injury or acute deformity, decreased range of motion. 07:25 Eyes: Negative for injury, pain, redness, and discharge. cp 07:25 Constitutional: Negative for body aches, chills, fever, poor PO intake. 07:25 Abdomen/GI: Negative for abdominal pain, nausea, vomiting, and diarrhea. 07:25 : Positive for decreased urine output, Negative for hematuria, burning with urination, testicular pain Exam: 07:35 Head/Face: Normocephalic, atraumatic. cp 07:35 Constitutional: The patient appears in no acute distress, alert, awake, non-toxic, well developed, well nourished, uncomfortable. 07:35 Eyes: Periorbital structures: appear normal, Conjunctiva: normal, no exudate, no cp injection, Sclera: no appreciated abnormality, Lids and lashes: appear normal, bilaterally. 07:35 ENT: External ear(s): are unremarkable, Nose: is normal, Mouth: Posterior pharynx: Airway: no evidence of obstruction, patent. 07:35 Neck: ROM/movement: is normal, is supple, without pain, no range of motions limitations. 07:35 Chest/axilla: Inspection: normal, Palpation: is normal, no crepitus, no tenderness. 07:35 Cardiovascular: Rate: normal, Rhythm: regular. 07:35 Respiratory: the patient does not display signs of respiratory distress, Respirations: normal, no use of accessory muscles, no retractions, labored breathing, is not present, Breath sounds: are clear throughout, no decreased breath sounds, no stridor, no wheezing. 07:35 Abdomen/GI: Inspection: abdomen appears normal, Bowel sounds: active, all quadrants, Palpation: abdomen is soft and non-tender, in all quadrants. 07:35 Back: pain, that is moderate, of the left low back, ROM is normal. 07:35 Skin: no rash present. 07:35 Neuro: Orientation: to person, place \T\ time. Mentation: is normal, Motor: moves all fours, strength is normal, Sensation: is normal, Gait: is steady, at a normal pace, without difficulty. Vital Signs: 07:08 BP 178 / 86; Pulse 74; Resp 18; Temp 98.2(T); Pulse Ox 97% ; Weight 77.11 kg; Height 5 corrales ft. 7 in. (170.18 cm) (R); 08:00 BP 181 / 77; Pulse 56; Resp 18 S; Pulse Ox 94% on R/A; mr2 10:00 BP 195 / 84; Pulse 73; Resp 17 S; Pulse Ox 93% on R/A; jg9 11:00 BP 144 / 73; Pulse 57; Resp 14 S; Pulse Ox 93% on R/A; jg9 11:30 BP 143 / 68; Pulse 61; Resp 17 S; Pulse Ox 93% on R/A; jg9 07:08 Body Mass Index 26.63 (77.11 kg, 170.18 cm) corrales MDM: 07:15 Patient medically screened. [facility] 10:55 Data reviewed: vital signs, nurses notes, lab test result(s), radiologic studies, CT cp scan. 10:55 Counseling: I had a detailed discussion with the patient and/or guardian regarding: the cp historical points, exam findings, and any diagnostic results supporting the discharge/admit diagnosis, lab results, radiology results, the need for outpatient follow up, a urologist. 10/12 07:15 Order name: Urine Microscopic Only; Complete Time: 10:55 10/12 07:15 Order name: Basic Metabolic Panel; Complete Time: 08:38 10/12 08:39 Interpretation: Normal except: CL 109; BUN 24; CRE 1.37; GFR 50. 10/12 07:15 Order name: CBC with Diff; Complete Time: 08:38 10/12 09:42 Interpretation: Normal except: HGB 13.0; HCT 39.2. 10/12 07:15 Order name: Hepatic Function; Complete Time: 08:38 10/12 09:42 Interpretation: Normal except: ALB 3.3; GLOB 4.5; A/G 0.7. 10/12 07:15 Order name: Lipase; Complete Time: 08:38 10/12 09:54 Order name: Urine Dipstick-Ancillary; Complete Time: 09:59 [facility] 10/12 10:00 Interpretation: Normal except: UBLD Trace-intact; UESTR Trace. 10/12 07:21 Order name: CT Stone Protocol; Complete Time: 09:00 10/12 09:43 Interpretation: Report reviewed. 10/12 10:20 Order name: Urine Culture [facility] 10/12 07:15 Order name: Urine Dipstick-Ancillary (obtain specimen); Complete Time: 11:13 10/12 07:15 Order name: IV Saline Lock; Complete Time: 08:10 10/12 07:15 Order name: Labs collected and sent; Complete Time: 08:10 10/12 09:01 Order name: PO challenge; Complete Time: 10:05 Administered Medications: 08:04 Drug: NS 0.9% 250 ml Route: IV; Rate: bolus; Site: right forearm; j9 08:33 Follow up: IV Status: Completed infusion; IV Intake: 250ml mr2 08:05 Drug: fentaNYL (PF) 25 mcg {Note: RASS-0.} Route: IVP; Site: right forearm; jg9 08:33 Follow up: Response: No adverse reaction; Marked relief of symptoms; Pain is decreased; mr2 RASS: Drowsy (-1) 08:33 Drug: NS 0.9% 250 ml Route: IV; Rate: 75 ml/hr; Site: right antecubital; mr2 11:30 Follow up: IV Status: Completed infusion jg9 09:55 Drug: Dilaudid (HYDROmorphone) 0.5 mg Route: IVP; Site: right forearm; jg9 10:15 Follow up: Response: Adverse reaction, Physician notified; Pain is decreased jg9 09:58 Drug: Flomax (tamsulosin) 0.4 mg Route: PO; jg9 11:39 Follow up: Response: No adverse reaction jg9 10:04 Drug: Rocephin - (cefTRIAXone) 1 grams Route: IVPB; Infused Over: 30 mins; Site: right jg9 forearm; 10:29 Follow up: IV Status: Completed infusion; IV Intake: 50ml jg9 10:30 Drug: Magnesium Sulfate 1 grams Route: IVPB; Infused Over: 1 hrs; Site: right forearm; jg9 11:00 Follow up: IV Status: Completed infusion; IV Intake: 100ml jg9 Disposition Summary: 10/12/21 10:56 Discharge Ordered Location: Home cp Problem: an ongoing problem cp Symptoms: have improved cp Condition: Stable cp Diagnosis - Calculus of ureter - left cp Followup: cp - With: Mark Campa MD - When: 2 - 3 days - Reason: Recheck today's complaints Discharge Instructions: - Discharge Summary Sheet cp - Kidney Stones cp - Renal Colic cp Forms: - Medication Reconciliation Form cp - Thank You Letter cp - Antibiotic Education cp - Prescription Opioid Use cp Prescriptions: - Cipro 250 mg Oral Tablet - take 1 tablet by ORAL route every 12 hours for 7 days; 14 tablet; Refills: 0, cp Product Selection Permitted - Ultracet 37.5-325 mg Oral Tablet - take 1 tablet by ORAL route every 6 hours - for up to 5 days; do not exceed 8 cp tablets per day.; 20 tablet; Refills: 0, Product Selection Permitted - Zofran 4 mg Oral Tablet - take 1 tablet by ORAL route every 12 hours As needed; 20 tablet; Refills: 0, cp Product Selection Permitted Addendum: 10/14/2021 09:03 Co-signature as Attending Physician, Milton Stern MD I agree with the assessment and c corrales plan of care. Signatures: Dispatcher [employer] Milton Chacon MD MD cha Page, Corey, PA PA cp Herrera, Deanna 3 Bubba Copeland RN RN mr2 Jagruti Osbornefer jg9 Marjan-StagerGail RN RN ha Corrections: (The following items were deleted from the chart) 10/12 10:42 10:39 Labs - recollect needed [place]. [place] [id number]
--- NOTE | 2021-10-12 10:57 | ER ---
Nurse's Notes [facility] Name: Ced Lincoln Age: 76 yrs Sex: Male : 1945 Arrival Date: 10/12/2021 Time: 06:57 Bed 15 Private MD: Diagnosis: Calculus of ureter-left Presentation: 10/12 07:08 Chief complaint: Patient states: pt presented to Ed reporting left flank pain, corrales decreased urination. dx with kidney stones x4 days ago. Coronavirus screen: Vaccine status: Patient reports receiving the 2nd dose of the covid vaccine. Ebola Screen: Patient denies travel to an Ebola-affected area in the 21 days before illness onset. Initial Sepsis Screen: Does the patient meet any 2 criteria? No. Patient's initial sepsis screen is negative. Does the patient have a suspected source of infection? No. Patient's initial sepsis screen is negative. Risk Assessment: Do you want to hurt yourself or someone else? Patient reports no desire to harm self or others. Onset of symptoms was October 08, 2021. 07:08 Method Of Arrival: Ambulatory corrales 07:08 Acuity: RAMIRO 3 corrales Triage Assessment: 07:11 General: Appears in no apparent distress. Pain: Complains of pain in left low back and corrales left mid back. Historical: - Allergies: 10:00 No Known Allergies; jg9 - Home Meds: 07:11 lisinopril Oral [Active]; Metoprolol Tartrate Oral [Active]; tamsulosin 0.4 mg Oral corrales cp24 1 cap once daily [Active]; - PMHx: 07:11 enlarged prostate; Hypertension; corrales - PSHx: 07:11 PHILIPP Injuinal Repair; corrales - Immunization history:: Adult Immunizations up to date. - Social history:: Smoking status: Patient denies any tobacco usage or history of. Screenin:30 Abuse screen: Denies threats or abuse. Denies injuries from another. Nutritional mr2 screening: No deficits noted. Tuberculosis screening: No symptoms or risk factors identified. Fall Risk None identified. Assessment: 07:30 General: Appears in no apparent distress. Behavior is calm, cooperative. mr2 07:30 Pain: Complains of pain in back-left flank Pain does not radiate. Pain currently is 5 mr2 out of 10 on a pain scale. Quality of pain is described as aching, pressure. Neuro: No deficits noted. Cardiovascular: No deficits noted. Respiratory: No deficits noted. GI: No deficits noted. GI: Reports left sided flank pain x4 days, hx of kidney stones. : No deficits noted. : Reports burning with urination. EENT: No deficits noted. Derm: No deficits noted. Musculoskeletal: No deficits noted. 10:05 Pain: Current management is with Dilaudid. jg9 11:12 Reassessment: Patient states feeling better. Pain in left flank region is down to 2/10. jg9 Vital Signs: 07:08 BP 178 / 86; Pulse 74; Resp 18; Temp 98.2(T); Pulse Ox 97% ; Weight 77.11 kg; Height 5 corrales ft. 7 in. (170.18 cm) (R); 08:00 BP 181 / 77; Pulse 56; Resp 18 S; Pulse Ox 94% on R/A; mr2 10:00 BP 195 / 84; Pulse 73; Resp 17 S; Pulse Ox 93% on R/A; jg9 11:00 BP 144 / 73; Pulse 57; Resp 14 S; Pulse Ox 93% on R/A; jg9 11:30 BP 143 / 68; Pulse 61; Resp 17 S; Pulse Ox 93% on R/A; jg9 07:08 Body Mass Index 26.63 (77.11 kg, 170.18 cm) corrales ED Course: 06:57 Patient arrived in ED. ja2 07:11 Triage completed. corrales 07:11 Arm band placed on right wrist. corrales 07:14 Milton Dong PA is PHCP. cp 07:15 Milton Stern MD is Attending Physician. [facility] 07:18 Bubba Copeland, RN is Primary Nurse. mr2 07:30 Patient has correct armband on for positive identification. Bed in low position. Call mr2 light in reach. Side rails up X 1. 07:37 Primary Nurse role handed off by Bubba Copeland, RN jl7 07:46 Bubba Copeland, RN is Primary Nurse. mr2 07:56 CT Stone Protocol In Process Unspecified. EDMS 08:05 Inserted saline lock: 22 gauge in right forearm, using aseptic technique. jg9 10:55 Mark Campa MD is Referral Physician. cp 11:41 No provider procedures requiring assistance completed. jg9 11:42 IV discontinued. jg9 Administered Medications: 08:04 Drug: NS 0.9% 250 ml Route: IV; Rate: bolus; Site: right forearm; jg9 08:33 Follow up: IV Status: Completed infusion; IV Intake: 250ml mr2 08:05 Drug: fentaNYL (PF) 25 mcg {Note: RASS-0.} Route: IVP; Site: right forearm; jg9 08:33 Follow up: Response: No adverse reaction; Marked relief of symptoms; Pain is decreased; mr2 RASS: Drowsy (-1) 08:33 Drug: NS 0.9% 250 ml Route: IV; Rate: 75 ml/hr; Site: right antecubital; mr2 11:30 Follow up: IV Status: Completed infusion jg9 09:55 Drug: Dilaudid (HYDROmorphone) 0.5 mg Route: IVP; Site: right forearm; jg9 10:15 Follow up: Response: Adverse reaction, Physician notified; Pain is decreased jg9 09:58 Drug: Flomax (tamsulosin) 0.4 mg Route: PO; jg9 11:39 Follow up: Response: No adverse reaction jg9 10:04 Drug: Rocephin - (cefTRIAXone) 1 grams Route: IVPB; Infused Over: 30 mins; Site: right jg9 forearm; 10:29 Follow up: IV Status: Completed infusion; IV Intake: 50ml jg9 10:30 Drug: Magnesium Sulfate 1 grams Route: IVPB; Infused Over: 1 hrs; Site: right forearm; jg9 11:00 Follow up: IV Status: Completed infusion; IV Intake: 100ml jg9 Intake: 08:33 IV: 250ml; Total: 250ml. mr2 10:29 IV: 50ml; Total: 300ml. jg9 11:00 IV: 100ml; Total: 400ml. jg9 Outcome: 10:56 Discharge ordered by MD. cp 11:42 Discharged to home ambulatory, with significant other. jg9 11:42 Condition: improved 11:42 Discharge instructions given to patient, significant other, Instructed on discharge instructions, follow up and referral plans. Demonstrated understanding of instructions, follow-up care, medications, Prescriptions given X 3. 11:42 Patient left the ED. jg9 Signatures: Dispatcher [employer] EDMilton Magallanes MD MD cha Page, Corey, PA PA cp Leal, Jahala RN RN jl7 Jayla Kong Mike, RN RN mr2 Lora Osborne jg9 Gail Milian RN RN corrales
[2021-10-12 12:15] VITALS: TEMP 98.2
[2021-10-12 12:18] VITALS: O2SAT 93
[2021-10-12 12:21] VITALS: BP 143/68
== END 2021-10-12 11:42 | disposition home or self-care (01) ==
LOC: ER 06:51
DX: N20.1 Calculus of ureter (principal)
CPT/HCPCS: 96365; 96367; 96361; 87088; 85025; 87086; 80048; 36415; 80076; 83690; 76377; 74176; 96375; 99284; J3010; J3475; J1170; J7050; 81003; 81015

== ENCOUNTER 2024-02-17 09:39 | Emergency (ER) | payer MEDICARE, OTHER ==
--- OUTSIDE RECORDS SUMMARY | 2024-02-17 09:41 | XMS REPORT | Continuity of Care Document ---
Author Name Unknown Address [address] [place] [address] [address] [place] [address] [facility] thconnect Address [address] [place] [address] [address] [place] [address] Care Team Providers Care Mill Representative Name Role Phone Unavailable Unavailable Unavailable Payers Payer Name Policy Type Policy Number Effective Date Expirati on Date Source [facility] (MEDICARE REPLACEMENT HMO) [id number] 2021 00:00:00 [facility]1 [id number] [facility] C1 [id number] [facility] C1 [id number] [facility] C1 [id number] [facility] [id number] [facility] [id number] [facility] C1 [id number] [facility] Problems Condition Name Condition Details Condition Category Status Onset Date Resolution Date Last Treatment Date Treating Clinician Comments Source Kidney stone Kidney stone Problem Active [facility] Benign prostatic hyperplasi a BPH (benign prostatic hyperplasi a) Problem Active [facility] Social History Social Habit Start Date Stop Date Quantity Comments Source Sex Assigned At [facility] History of Tobacco Use [facility] Medications Ordered Medication Name Filled Medication Name Start Date Stop Date Current Medication? Ordering Clinician Indication Dosage Frequency Signature (SIG) Comments Components Source Finasteride Finasteride 06-28 00:00: 00 12-24 00:00 :00 No Ced Cooper 1 tablet [facility] Finasteride 5 MG Finasteride 5 MG 06-28 00:00: 00 12-24 00:00 :00 No 1{table t} QD Finasterid e 5 MG Finasteride 5 MG Finasteride 5 MG 06-28 00:00: 00 12-24 00:00 :00 No 1{table t} QD Finasterid e 5 MG Tamsulosin HCl Tamsulosin HCl 06-02 00:00: 00 11-28 00:00 :00 No Ced Cooper 1 capsule [facility] Metoprolol Tartrate Metoprolol Tartrate Yes Ced Cooper 1 tablet with food [facility] Lisinopril Lisinopril Yes Ced Cooper 1 tablet [facility] Metoprolol Tartrate 25 MG Metoprolol Tartrate 25 MG No 1{table t_with_ food} BID Metoprolol Tartrate 25 MG Tamsulosin HCl 0.4 MG Tamsulosin HCl 0.4 MG No 1{capsu le} BID Tamsulosin HCl 0.4 MG Lisinopril 10 MG Lisinopril 10 MG No 1{table t} QD Lisinopril 10 MG Metoprolol Tartrate 25 MG Metoprolol Tartrate 25 MG No 1{table t_with_ food} BID Metoprolol Tartrate 25 MG Tamsulosin HCl 0.4 MG Tamsulosin HCl 0.4 MG No 1{capsu le} BID Tamsulosin HCl 0.4 MG Lisinopril 10 MG Lisinopril 10 MG No 1{table t} QD Lisinopril 10 MG Vital Signs Vital Name Observation Time Observation Value Comments S chancece height 2021-04-18 08:20:00 67 [in_i] Commo n [facility] weight 2021-04-18 08:20:00 170 [lb_av] Comm on [facility] temperature 2021-04-18 08:20:00 96.8 [degF] Com [facility] bmi 2021-04-18 08:20:00 26.62 kg/m2 Comm on [facility] oximetry 2021-04-18 08:20:00 95 % Commo n [facility] blood pressure systolic 2021-04-18 08:20:00 174 mm[Hg] Common [facility] t [facility] blood pressure diastolic 2021-04-18 08:20:00 79 mm[Hg] [facility] height 2021-04-04 08:00:00 67 [in_i] Commo n [facility] weight 2021-04-04 08:00:00 170 [lb_av] Comm on [facility] temperature 2021-04-04 08:00:00 96.8 [degF] Com [facility] bmi 2021-04-04 08:00:00 26.62 kg/m2 Comm on [facility] oximetry 2021-04-04 08:00:00 90 % Commo n [facility] blood pressure systolic 2021-04-04 08:00:00 192 mm[Hg] [facility] blood pressure diastolic 2021-04-04 08:00:00 86 mm[Hg] Common [facility] height 2020-09-28 09:00:00 67 [in_i] Commo n [facility] weight 2020-09-28 09:00:00 170 [lb_av] Comm on [facility] temperature 2020-09-28 09:00:00 96.4 [degF] Com [facility] bmi 2020-09-28 09:00:00 26.62 kg/m2 Comm on [facility] oximetry 2020-09-28 09:00:00 95 % Commo n [facility] blood pressure systolic 2020-09-28 09:00:00 166 mm[Hg] [facility] blood pressure diastolic 2020-09-28 09:00:00 75 mm[Hg] Common [facility] height 2020-08-11 09:00:00 67 [in_i] Commo n [facility] weight 2020-08-11 09:00:00 170 [lb_av] Comm on [facility] temperature 2020-08-11 09:00:00 98.0 [degF] Com mon [facility] bmi 2020-08-11 09:00:00 26.62 kg/m2 Comm on [facility] oximetry 2020-08-11 09:00:00 94 % Commo n [facility] blood pressure systolic 2020-08-11 09:00:00 140 mm[Hg] Common [facility] blood pressure diastolic 2020-08-11 09:00:00 80 mm[Hg] [facility] Encounters Start Date/Time End Date/Time Encounter Type Admission Type Attending [facility] Care Facility Care Department Encounter ID Source 2022-06-04 16:04:01 Outpatient [facility] [id number] [facility] 2021-11-08 12:21:47 Outpatient [facility] [id number] [facility] 2021-11-08 12:20:34 Outpatient [facility] [id number] [facility] 2021-11-08 12:11:53 Outpatient [facility] [id number] [facility] 2021-11-08 11:39:32 Outpatient [facility] [id number] [facility] 2022-04-27 07:05:00 2022-04-27 07:05:00 [place] [facility] [id number] [facility] 2022-04-27 00:00:00 2022-04-27 00:00:00 [place] [facility] [id number] [facility] 2021-09-05 12:01:00 2021-09-05 12:01:00 Outpatient [facility] [id number] [facility] 2021-04-18 00:00:00 2021-04-18 00:00:00 OFFICE VISIT ESTAB PT LEVEL 4 [facility] ST[facility] [id number] [facility] 2021-04-04 00:00:00 2021-04-04 00:00:00 (TEL) [facility]C [facility] [id number] [facility] 2021-04-04 00:00:00 2021-04-04 00:00:00 OFFICE VISIT EST PT LEVEL 3 [facility] [id number] [facility] 2020-09-28 00:00:00 2020-09-28 00:00:00 OFFICE VISIT ESTAB PT LEVEL 4 [facility] ST[facility] [id number] [facility] 2020-08-23 00:00:00 2020-08-23 00:00:00 (TEL) [facility]LMLC ST[facility]C [id number] [facility] 2020-08-22 00:00:00 2020-08-22 00:00:00 (TEL) [facility]LMLC ST[facility]C [id number] [facility] 2020-08-11 00:00:00 2020-08-11 00:00:00 OFFICE VISIT ESTAB PT LEVEL 4 [facility] [id number] [facility] 2020-06-28 10:30:00 2020-06-28 10:30:00 [facility] [id number] [facility] 2020-06-24 14:26:00 2020-06-24 14:26:00 [facility] [id number] [facility] 2020-06-23 15:16:00 2020-06-23 15:16:00 [facility] [id number] [facility] 2020-06-03 11:00:00 2020-06-03 11:00:00 [facility] [id number] [facility] 2020-06-02 13:15:00 2020-06-02 13:15:00 [facility] [id number] [facility]
[2024-02-17] MEDS ORDERED: KETOROLAC 30 MG/ML INJ ONE (10:16)
[2024-02-17 11:16] LABS: Absolute Basophils 0.1 K/uL (0-0.5); Absolute Eosinophils 0.3 K/uL (0-0.5); Absolute Lymphocytes (CBC) 2.3 K/uL (0.7-4.9); Absolute Monocytes 0.7 K/uL (0.1-1.3); Absolute Neutrophil 7.4 K/uL (1.8-8.0); Basophils % 1.1 % (0-1.3); Hematocrit 43.5 % (39.6-49.0); Hemoglobin 14.4 g/dL (13.6-17.9); MCH 29.1 pg (27.0-35.0); MCHC 33.1 g/dL (32.0-36.0); MCV 87.9 fL (80-100); MPV 8.6 fL (7.6-11.3); Monocytes % 6.7 % (3.3-12.3); Neutrophils % 68.2 % (41.7-73.7); Platelets 295 thou/uL (152-406); RBC Red Blood Cell Count 4.95 M/uL (4.33-5.43)
[2024-02-17 11:32] LABS: Albumin 3.5 g/dL (3.4-5.0); Albumin/Globulin Ratio 0.9 (1.1-1.8); Anion Gap 6.9 mEq/L (5.0-15.0); Bilirubin Total 0.4 mg/dL (0.2-1.0); Globulin 3.8 g/dL (2.3-3.5); Potassium 3.9 mEq/L (3.5-5.1); Protein, Total 7.3 g/dL (6.4-8.2)
--- NOTE | 2024-02-17 12:11 | RAD REPORT ---
EXAM DESCRIPTION: CT - Abdomen Pelvis W Contrast - 02/17/2024 11:57 am CLINICAL HISTORY: Abdominal pain right groin pain COMPARISON: 2020 TECHNIQUE: Computed axial tomography of the abdomen pelvis was obtained. 100 cc Isovue-300 was admin istered intravenously. Oral contrast was not requested which limits evaluation of bowel and appendix All CT scans are performed using dose optimization technique as appropriate and may include automated exposure control or mA/KV adjustment according to patient size. FINDINGS: Mild fatty liver Spleen, pancreas, adrenals and kidneys are unremarkable Normal appendix. Marked prostatic enlargement. 23 millimeter low-density structure is present within the anterior pros mcneil near midline There is no evidence of diverticulitis. Right inguinal hernia repair. No evidence of recurrence IMPRESSION: Marked prostatic enlargement. 23 millimeter low-density structure within the prostate may represent an abscess and should be correl ated clinically
[2024-02-17 12:38] LABS: Specific Gravity 1.016 (1.005-1.030); Sqamous Epithelial None Seen /HPF (None Seen); Urine Bacteria None Seen /HPF (<20); Urine Bilirubin NEGATIVE (Negative); Urine Blood 3+ (OVER) (Negative); Urine Clarity Extremely Turbid (Clear); Urine Color Light-Orange (Yellow); Urine Culture Reflex Order NOT NEEDED; Urine Glucose NEGATIVE (Negative); Urine Ketones NEGATIVE (Negative); Urine Microscopic Reflex YN ORDER UMIC; Urine Mucus Slight /HPF (None Seen); Urine Nitrite NEGATIVE (Negative); Urine Protein TRACE (Negative); Urine RBC >50 /HPF (None Seen); Urine Urobilinogen Normal (Normal); Urine WBC <5 /HPF (<5)
--- NOTE | 2024-02-17 12:52 | ER ---
Nurse's Notes [facility] Name: Ced Lincoln Age: 78 yrs Sex: Male : 1945 Arrival Date: 02/17/2024 Time: 09:39 Bed 18 Private MD: Diagnosis: Right Groin Pain Presentation: 02/16 09:44 Chief complaint: Chief complaint: Patient states: right groin pain x 1 week ago. aa5 09:44 Coronavirus screen: At this time, the client does not indicate any symptoms associated aa5 with coronavirus-19. Ebola Screen: Patient denies travel to an Ebola-affected area in the 21 days before illness onset. Initial Sepsis Screen: Does the patient meet any 2 criteria? No. Patient's initial sepsis screen is negative. Does the patient have a suspected source of infection? No. Patient's initial sepsis screen is negative. Risk Assessment: Do you want to hurt yourself or someone else? Patient reports no desire to harm self or others. 09:44 Acuity: RAMIRO 3 aa5 09:44 Method Of Arrival: Ambulatory aa5 09:44 Onset of symptoms was February 2024. aa5 Historical: - Allergies: 09:44 No Known Allergies; aa5 - PMHx: 09:44 enlarged prostate; Hypertension; aa5 - PSHx: 09:44 PHILIPP Injuinal Repair; aa5 - Immunization history:: Adult Immunizations unknown. - Infectious Disease History:: Denies. - Social history:: Smoking status: Patient denies any tobacco usage or history of. Screenin:31 [facility] ED Fall Risk Assessment (Adult) History of falling in the last 3 months, nj1 including since admission No falls in past 3 months (0 pts) Confusion or Disorientation No (0 pts) Intoxicated or Sedated No (0 pts) Impaired Gait No (0 pts) Mobility Assist Device Used No (0 pt) Altered Elimination No (0 pt) Score/Fall Risk Level 0 - 2 = Low Risk Oriented to surroundings, Maintained a safe environment, Hourly rounding (assess needs \T\ fall precautionary measures) done. Abuse screen: Denies threats or abuse. Denies injuries from another. Nutritional screening: No deficits noted. Tuberculosis screening: No symptoms or risk factors identified. Assessment: 10:20 General: Appears in no apparent distress. uncomfortable, Behavior is calm, cooperative, nj1 appropriate for age. 10:20 Pain: Complains of pain in groin, right Pain currently is 5 out of 10 on a pain scale. nj1 Neuro: Level of Consciousness is awake, alert, obeys commands, Oriented to person, place, time, situation. Cardiovascular: Patient's skin is warm and dry. Respiratory: Airway is patent Respiratory effort is even, unlabored. 11:24 Reassessment: Patient appears in no apparent distress at this time. Patient and/or nj1 family updated on plan of care and expected duration. Pain level reassessed. Patient is alert, oriented x 3, equal unlabored respirations, skin warm/dry/pink. Patient denies pain at this time. Patient states feeling better. 12:26 Reassessment: Patient appears in no apparent distress at this time. Resting/sleeping. nj1 Vital Signs: 09:44 BP 151 / 69; Pulse 63; Resp 16 S; Temp 97.8(TE); Pulse Ox 95% on R/A; Weight 74.39 kg aa5 (R); Height 5 ft. 6 in. (R); 11:24 BP 158 / 75; Pulse 48; Resp 17; Pulse Ox 96% ; nj1 13:20 BP 193 / 84; Pulse 59; Resp 16; Pulse Ox 96% on R/A; nj1 09:44 Body Mass Index 26.47 (74.39 kg, 167.64 cm) aa5 ED Course: 09:42 Patient arrived in ED. im 09:44 Arm band placed on Patient placed in an exam room, on a stretcher. aa5 09:45 Cristhian Barnett MD is Attending Physician. ec2 09:59 Kita Franklin, RADHA is Primary Nurse. nj1 10:11 Triage completed. aa5 10:19 Inserted saline lock: 22 gauge in right antecubital area, using aseptic technique. jr12 Blood collected. 10:20 CBC with Diff Sent. jr12 10:20 CMP Sent. jr12 10:20 Lipase Sent. jr12 10:31 Patient has correct armband on for positive identification. Bed in low position. Call nj1 light in reach. Provided Education on: call light, fall precautions. Client placed on continuous cardiac and pulse oximetry monitoring. NIBP monitoring applied. 11:58 CT Abd/Pelvis - IV Contrast Only In Process Unspecified. EDMS 12:53 Mark Campa MD is Referral Physician. ec2 13:22 Notified ED physician of other BP 194/83, ok to go ahead with discharge per his nj1 instructions. Administered Medications: 10:21 Drug: TORadol - Ketorolac IVP 15 mg IVP once Route: IVP; Site: right antecubital; nj1 11:30 Follow up: Response: No adverse reaction; Pain is decreased nj1 Outcome: 12:52 Discharge ordered by . ec2 13:34 Patient left the ED. nj1 Signatures: Dispatcher [employer] [facility] Ana María Schofield RN RN aa5 Kita Franklin RN RN nj1 Mansi Robison Edwin, MD MD ec2 Kayla Oates jr12 Corrections: (The following items were deleted from the chart) 10:11 09:44 Chief complaint: aa5 aa5 11:48 11:24 Reassessment: Patient appears in no apparent distress at this time. Patient nj1 and/or family updated on plan of care and expected duration. Pain level reassessed. Patient is alert, oriented x 3, equal unlabored respirations, skin warm/dry/pink. nj1
--- NOTE | 2024-02-17 12:52 | EDPHYS ---
Physician Documentation [facility] Name: Ced Lincoln Age: 78 yrs Sex: Male : 1945 Arrival Date: 02/17/2024 Time: 09:39 Bed 18 Private MD: ED Physician Cristhian Barnett HPI: 02/16 09:59 This 78 yrs old Male presents to ER via Unassigned with complaints of Groin Pain. ec2 09:59 Patient arrives today for evaluation of right groin pain. Patient reports intermittent ec2 pain ongoing for 1 week. Patient reports pain was more constant last night which prompted evaluation today. Denies any falls injuries or trauma. Denies any urinary complaints. Patient reports no redness of the area. Patient reports history of previous groin hernia, status post repair. Patient denies any bowel concerns.. Historical: - Allergies: 09:44 No Known Allergies; aa5 - PMHx: 09:44 enlarged prostate; Hypertension; aa5 - PSHx: 09:44 PHILIPP Injuinal Repair; aa5 - Immunization history:: Adult Immunizations unknown. - Infectious Disease History:: Denies. - Social history:: Smoking status: Patient denies any tobacco usage or history of. ROS: 09:59 Constitutional: as per hpi ec2 Exam: 09:59 Constitutional: GEN: NAD Head: atraumatic Eyes: EOMI Ears: External ears are ec2 normal. CV: regular rate LUNGS: no respiratory distress ABD: non-distended, soft, nontender, not guarding, not rigid. : No swelling noted in the right groin, no erythema, no warmth, no fluctuance appreciated. Penis without discharge, normal appearing. SKIN: no evidence of rashes MSK: no evidence of trauma NEURO: moves all extremities equally Vital Signs: 09:44 BP 151 / 69; Pulse 63; Resp 16 S; Temp 97.8(TE); Pulse Ox 95% on R/A; Weight 74.39 kg aa5 (R); Height 5 ft. 6 in. (R); 11:24 BP 158 / 75; Pulse 48; Resp 17; Pulse Ox 96% ; nj1 13:20 BP 193 / 84; Pulse 59; Resp 16; Pulse Ox 96% on R/A; nj1 09:44 Body Mass Index 26.47 (74.39 kg, 167.64 cm) aa5 MDM: 09:49 Patient medically screened. ec2 09:59 Data reviewed: vital signs. ED course: Patient arrives today for evaluation of a right ec2 groin pain. Examination remarkable for and abdominal findings as above. Will obtain lab work, CT imaging. Will treat the patient's pain with Toradol. Evaluating for possible hernia, possible lymphadenopathy, UTI.. 11:20 ED course: CBC reassuring.. ec2 12:16 ED course: CT imaging shows approximately 2 cm lesion on the prostate as well as ec2 prostatomegaly. Previous imaging in 2020 does show comment of lobulated and heterogenous prostate. . 12:50 ED course: I performed a prostate examination without any significant tenderness. ec2 Patient otherwise nontoxic-appearing with a leukocytosis. Patient reports some reluctance regarding following up with urology and obtaining adequate care, additionally states that he has to care for his so he expressed some additional reluctance about more immediate care. I instructed him to set up an appointment when he can and if he develops any symptoms such as urinary obstruction or infectious symptoms to return to emergency department.. 12:52 ED course: MRI as a possible abscess, I doubt this given the patient on toxicity as ec2 well as general appearance and lack of tenderness on prostate examination.. 05 09:59 Order name: CBC with Diff; Complete Time: 11:20 ec2 02/16 09:59 Order name: CMP; Complete Time: 11:43 ec2 02/16 09:59 Order name: Lipase; Complete Time: 11:43 ec2 02/16 09:59 Order name: Urinalysis w/ reflexes; Complete Time: 12:39 ec2 02/16 09:59 Order name: CT Abd/Pelvis - IV Contrast Only; Complete Time: 12:14 ec2 02/16 09:59 Order name: IV Saline Lock; Complete Time: 10:20 ec2 02/16 09:59 Order name: Labs collected and sent; Complete Time: 10:20 ec2 Administered Medications: 10:21 Drug: TORadol - Ketorolac IVP 15 mg IVP once Route: IVP; Site: right antecubital; nj1 11:30 Follow up: Response: No adverse reaction; Pain is decreased nj1 Disposition Summary: 02/17/24 12:52 Discharge Ordered Notes: Location: Home ec2 Condition: Stable ec2 Diagnosis - Right Groin Pain ec2 Followup: ec2 - With: Private Physician - When: - Reason: Re-evaluation by your physician Followup: ec2 - With: Mark Campa MD - When: - Reason: Recheck today's complaints Forms: - Medication Reconciliation Form ec2 - Antibiotic Education ec2 - Prescription Opioid Use ec2 - Patient Portal Instructions ec2 - Leadership Thank You Letter ec2 Signatures: Dispatcher [employer] Ana María Joe RN RN aa5 Kita Franklin RN RN nj1 Cristhian Barnett MD MD ec2 Corrections: (The following items were deleted from the chart) : 12:17 Straight Cath ordered. ec2 nj1
[2024-02-17 14:11] VITALS: BP 193/84; TEMP 97.8; O2SAT 96
== END 2024-02-17 13:34 | disposition home or self-care (01) ==
LOC: ER 09:39
DX: R10.31 Right lower quadrant pain (principal); N40.0 Benign prostatic hyperplasia without lower urinary tract symptoms; I10 Essential (primary) hypertension
CPT/HCPCS: 85025; 81001; 36415; 83690; 80053; 74177; 96374; 99284; Q9967